=== PATIENT | male | born 1990 | race Caucasian/White ===

== ENCOUNTER 2021-01-18 09:39 | Emergency (ER) | payer OTHER ==
[~2021-01-18] VITALS: Ht 172.7 cm; Wt 88.0 kg
[2021-01-18] MEDS ORDERED: ONDANSETRON 4MG ODT PO STA (10:15)
[2021-01-18] MEDS ORDERED: MAGNESIUM/ALUMINUM HYDROXIDE/SIMETHICONE 30ML UDC PO STA (10:15)
[2021-01-18] MEDS ORDERED: ONDA4TAB5 MT (11:23)
[2021-01-18 11:30] VITALS: BP 136/79
== END 2021-01-18 11:30 ==
LOC: ER 09:58
DX: R11.2 Nausea with vomiting, unspecified (principal)
CPT/HCPCS: 99283; Q0162